=== PATIENT | female | born 1990 | race Caucasian/White ===

== ENCOUNTER 2016-11-06 10:13 | Emergency (ER) | payer OTHER ==
[~2016-11-06] VITALS: Ht 157.4 cm; Wt 59.0 kg
[~2016-11-06 10:13] MED LIST: ANAPROX DS550 MG PO; BACTRIM DS 8001 TA1 PO; CLARITIN-D 10 M1 T21 PO; COLACE100 MG PO; FLAGYL500 MG PO; HYDROCODONE BIT1 T11 PO; IRON325 M1 PO; LIDEX 0.05% CRE15 GM T; MACROBID100 M1 PO; MOTRIN800 MG PO; Motrin,Rufen800 MG PO; PERCOCET 325 MG1 TA2 PO; PERCOCET 325 MG1 TA5 PO; PRENATAL1 TA1 PO; SYNTHROID,LEVO88 MCG PO; Synthroid,Levo50 MCG PO; TOBREX OPHTH S2.5 ML OPH; Tessalon Perle100 MG PO; ULTRAM50 MG PO; VIBRAMYCIN100 MG PO; VITAMIN D5000 I3 PO; ZOFRAN ODT4 MG SL
[2016-11-06] MEDS ORDERED: ANTIBIOTIC (10:18)
[2016-12-29] MEDS ORDERED: AVPAK AZITHROM250 M1 PO (11:18)
== END 2016-11-06 11:36 | disposition home or self-care (01) ==
LOC: ED 10:13
DX: S62.663A Nondisplaced fracture of distal phalanx of left middle finger, initial encounter for closed fracture (principal); M20.012 Mallet finger of left finger(s); E03.9 Hypothyroidism, unspecified; F17.200 Nicotine dependence, unspecified, uncomplicated; Z88.2 Allergy status to sulfonamides; Z79.899 Other long term (current) drug therapy; X58.XXXA Exposure to other specified factors, initial encounter; Y93.9 Activity, unspecified; Y92.9 Unspecified place or not applicable; Y99.9 Unspecified external cause status

== ENCOUNTER 2017-02-17 10:37 | Emergency (ER) | payer OTHER ==
[~2017-02-17] VITALS: Ht 157.4 cm; Wt 59.0 kg
[~2017-02-17 10:37] MED LIST changes: +ANTIBIOTIC; +AVPAK AZITHROM250 M1 PO
[2017-02-17] MEDS ORDERED: CEPACOL SORE T1 EAC1 MM (11:57)
[2017-02-17] MEDS ORDERED: NASONEX0.05 MG/AC NAS (11:57)
== END 2017-02-17 12:22 | disposition home or self-care (01) ==
LOC: ED 10:37
DX: J02.9 Acute pharyngitis, unspecified (principal); J30.2 Other seasonal allergic rhinitis; E03.9 Hypothyroidism, unspecified; Z88.2 Allergy status to sulfonamides; Z79.899 Other long term (current) drug therapy

== ENCOUNTER 2017-04-03 09:20 | Emergency (ER) | payer OTHER ==
[~2017-04-03] VITALS: Ht 157.4 cm; Wt 45.4 kg
[~2017-04-03 09:20] MED LIST changes: +CEPACOL SORE T1 EAC1 MM; +NASONEX0.05 MG/AC NAS
[2017-04-03 09:59] LABS: BILIRUBIN 1+ (NEGATIVE); BLOOD 1+ (NEGATIVE); CLARITY SL CLOUDY (CLEAR); COLOR YELLOW (YELLOW); GLUCOSE NEGATIVE (NEGATIVE); KETONE 2+ (NEGATIVE); LEUKO ESTERASE TRACE (NEGATIVE); NITRITE NEGATIVE (NEGATIVE); PH 5.5 (5.0-9.0); PROTEIN TRACE (NEGATIVE); SPECIFIC GRAVITY 1.025 (1.005-1.030); UROBILINOGEN 0.2 E.U./dl (0.2-1.0)
[2017-04-03 10:18] LABS: BACTERIA 2+; URINE REFLEX COMMENT YES (NO)
[2017-04-03] MEDS ORDERED: MACROBID100 M1 PO (10:34)
[2017-04-03] MEDS ORDERED: ZOFRAN4 MG PO (10:34)
== END 2017-04-03 11:57 | disposition home or self-care (01) ==
LOC: ED 09:20
PROVIDERS: Nurse Practitioner Family
DX: N39.0 Urinary tract infection, site not specified (principal); R31.9 Hematuria, unspecified; Z88.2 Allergy status to sulfonamides

== ENCOUNTER 2017-04-13 15:53 | Emergency (ER) | payer OTHER ==
[~2017-04-13] VITALS: Ht 157.4 cm; Wt 59.0 kg
[~2017-04-13 15:53] MED LIST changes: +ZOFRAN4 MG PO
[2017-04-13] MEDS ORDERED: NAPROSYN500 MG PO (16:23)
[2017-04-13] MEDS ORDERED: AMOXICILLIN500 M2 PO (16:23)
== END 2017-04-13 16:38 | disposition home or self-care (01) ==
LOC: ED 15:53
DX: K08.89 Other specified disorders of teeth and supporting structures (principal); Z88.2 Allergy status to sulfonamides

== ENCOUNTER 2017-07-08 18:43 | Emergency (ER) | payer OTHER ==
[~2017-07-08] VITALS: Ht 157.4 cm; Wt 54.4 kg
[~2017-07-08 18:43] MED LIST changes: +AMOXICILLIN500 M2 PO; +NAPROSYN500 MG PO
[2017-07-08] MEDS ORDERED: ANAPROX DS550 MG PO (19:02)
== END 2017-07-08 19:26 | disposition home or self-care (01) ==
LOC: ED 18:43
DX: K08.89 Other specified disorders of teeth and supporting structures (principal); F17.200 Nicotine dependence, unspecified, uncomplicated; Z88.8 Allergy status to other drugs, medicaments and biological substances

== ENCOUNTER 2019-07-19 19:38 | Emergency (ER) | payer OTHER ==
[~2019-07-19] VITALS: Ht 157.4 cm
[2019-07-19] MEDS ORDERED: Bactroban Oint22 GM T (20:06)
== END 2019-07-19 20:25 | disposition home or self-care (01) ==
LOC: ED 19:38
DX: L70.0 Acne vulgaris (principal); E03.9 Hypothyroidism, unspecified; Z88.2 Allergy status to sulfonamides; Z79.899 Other long term (current) drug therapy

== ENCOUNTER 2019-07-29 08:30 | Emergency (ER) | payer OTHER ==
[~2019-07-29] VITALS: Ht 157.4 cm; Wt 68.0 kg
[~2019-07-29 08:30] MED LIST changes: +Bactroban Oint22 GM T
[2019-07-29] MEDS ORDERED: PREDNISONE50 MG PO (08:45)
[2019-07-29] MEDS ORDERED: ZITHROMAX250 MG PO (08:45)
== END 2019-07-29 08:51 | disposition home or self-care (01) ==
LOC: ED 08:30
DX: J06.9 Acute upper respiratory infection, unspecified (principal); E03.9 Hypothyroidism, unspecified; F17.200 Nicotine dependence, unspecified, uncomplicated; Z88.2 Allergy status to sulfonamides

== ENCOUNTER 2019-09-23 20:07 | Emergency (ER) | payer OTHER ==
[~2019-09-23] VITALS: Ht 157.4 cm
[~2019-09-23 20:07] MED LIST changes: +PREDNISONE50 MG PO; +ZITHROMAX250 MG PO
[2019-09-23] MEDS ORDERED: AMOXICILLIN500 M2 PO (21:04)
== END 2019-09-23 21:12 | disposition home or self-care (01) ==
LOC: ED 20:07
DX: J02.9 Acute pharyngitis, unspecified (principal); E07.9 Disorder of thyroid, unspecified; Z88.2 Allergy status to sulfonamides; Z79.899 Other long term (current) drug therapy; Z79.2 Long term (current) use of antibiotics

== ENCOUNTER → 2020-07-17 | Outpatient (CLI) | payer OTHER ==
[2020-07-17 12:59] LABS: ALBUMIN 4.2 gm/dl (3.1-4.5); ALKALINE PHOSPHATASE 73 U/L (45-117); BUN 12 mg/dl (7-24); CHLORIDE 104 mmol/L (98-107); FREE T4 0.83 ng/dl (0.76-1.46); POTASSIUM 3.8 mmol/L (3.5-5.1); SGOT/AST 19 IU/L (3-35); SGPT/ALT 43 U/L (12-78); SODIUM 136 mmol/L (136-145); TOTAL PROTEIN 7.9 gm/dL (6.4-8.2)
[2020-07-17 13:18] LABS: BILIRUBIN NEGATIVE; BLOOD NEGATIVE (NEGATIVE); CLARITY CLEAR (CLEAR); COLOR YELLOW (YELLOW); GLUCOSE NEGATIVE; KETONE NEGATIVE; LEUKO ESTERASE NEGATIVE (NEGATIVE); NITRITE NEGATIVE (NEGATIVE); PH 6.5 (4.5-8.0); UROBILINOGEN 0.2 E.U./dl (0.0-1.0); WBC 0-2 wbc/hpf (0-5)
[2020-07-17 13:19] LABS: BACTERIA TRACE
== END | disposition home or self-care (01) ==
LOC: LAB 11:49
PROVIDERS: ATTEND Family Medicine
DX: E03.9 Hypothyroidism, unspecified (principal); R35.0 Frequency of micturition

== ENCOUNTER → 2020-10-22 | Outpatient (CLI) | payer OTHER | END | disposition home or self-care (01) | LOC: COVID19 15:37 | PROVIDERS: ATTEND Family Medicine | DX: Z20.828 Contact with and (suspected) exposure to other viral communicable diseases (principal) ==

== ENCOUNTER → 2020-11-13 | Outpatient (CLI) | payer OTHER ==
[2020-11-13 13:33] LABS: BASO # 0.1 10*3/uL (0.0-0.1); BASO % 0.7 % (0.0-1.0); EOS # 0.2 10*3/uL (0.0-0.4); EOS % 2.8 % (1.0-4.0); HEMATOCRIT 44.4 % (37.0-47.0); LYMPH # 1.9 10*3/uL (1.3-4.4); LYMPH % 26.8 % (27.0-41.0); MEAN CELL VOLUME 94.9 fl (81.0-99.0); MEAN CORPUSCULAR HGB 30.8 pg (27.0-31.0); MEAN CORPUSCULAR HGB CONC 32.4 g/dl (33.0-37.0); MEAN PLATELET VOLUME 10.4 fl (9.6-12.3); MONO # 0.7 10*3/uL (0.1-1.0); NEUT # 4.2 10*3/uL (2.3-7.9); NEUT % 59.4 % (47.0-73.0); PLATELET COUNT AUTOMATED 254 10*3/uL (130-400); RED BLOOD COUNT 4.68 10*6/uL (4.10-5.10); RED CELL DISTRI WIDTH 12.5 % (0-14.5); WHITE BLOOD COUNT 7.1 10*3/uL (4.8-10.8)
[2020-11-13 14:01] LABS: FREE T4 0.81 ng/dl (0.76-1.46)
[2020-11-13 14:13] LABS: THYROID STIM HORMONE (HS) 2.53 uIU/ml (0.358-4.75)
== END | disposition home or self-care (01) ==
LOC: LAB 12:51
PROVIDERS: ATTEND Family Medicine
DX: E03.9 Hypothyroidism, unspecified (principal); D64.9 Anemia, unspecified

== ENCOUNTER 2021-02-07 08:44 | Emergency (ER) | payer OTHER ==
[~2021-02-07] VITALS: Ht 157.4 cm; Wt 77.1 kg
== END 2021-02-07 10:37 | disposition home or self-care (01) ==
LOC: ED 08:44
DX: U07.1 COVID-19 (principal); Z98.51 Tubal ligation status; Z79.899 Other long term (current) drug therapy; Z88.2 Allergy status to sulfonamides

== ENCOUNTER → 2021-05-31 | Outpatient (CLI) | payer OTHER ==
[2021-05-31 12:06] LABS: BASO % 0.6 % (0.0-1.0); EOS # 0.1 10*3/uL (0.0-0.4); EOS % 1.6 % (1.0-4.0); HEMATOCRIT 42.1 % (37.0-47.0); LYMPH # 1.9 10*3/uL (1.3-4.4); LYMPH % 27.9 % (27.0-41.0); MEAN CELL VOLUME 94.6 fl (81.0-99.0); MEAN CORPUSCULAR HGB 31.2 pg (27.0-31.0); MEAN PLATELET VOLUME 10.2 fl (9.6-12.3); MONO # 0.6 10*3/uL (0.1-1.0); MONO % 8.9 % (3.0-9.0); NEUT # 4.1 10*3/uL (2.3-7.9); NEUT % 60.6 % (47.0-73.0); PLATELET COUNT AUTOMATED 240 10*3/uL (130-400); RED BLOOD COUNT 4.45 10*6/uL (4.10-5.10); WHITE BLOOD COUNT 6.8 10*3/uL (4.8-10.8)
[2021-05-31 12:52] LABS: ALBUMIN 4.1 gm/dl (3.1-4.5); ALKALINE PHOSPHATASE 66 U/L (45-117); BUN 18 mg/dl (7-24); CHLORIDE 107 mmol/L (98-107); CREATININE 0.73 mg/dL (0.55-1.02); POTASSIUM 3.8 mmol/L (3.5-5.1); SGOT/AST 25 IU/L (3-35); SGPT/ALT 46 U/L (12-78); SODIUM 137 mmol/L (136-145); TOTAL PROTEIN 7.9 gm/dL (6.4-8.2)
[2021-06-05 09:07] LABS: ALTERNARIA ALTERNATA, IGE <0.10 kU/L (Class 0); ASPERGILLUS FUMIGATU, IGE <0.10 kU/L (Class 0); CLADOSPORIUM HERBARU, IGE <0.10 kU/L (Class 0); PENICILLIUM CHRYSOGENUM, IGE <0.10 kU/L (Class 0); SETOMELANOMMA ROSTRAT <0.10 kU/L (Class 0); STEMPHYLIUM HERBARUM <0.10 kU/L (Class 0)
== END | disposition home or self-care (01) ==
LOC: LAB 11:26
PROVIDERS: ATTEND Family Medicine
DX: K21.9 Gastro-esophageal reflux disease without esophagitis (principal); J30.2 Other seasonal allergic rhinitis

== ENCOUNTER → 2021-07-23 | Outpatient (CLI) | payer OTHER ==
[2021-07-23 09:41] LABS: BASO # 0.1 10*3/uL (0.0-0.1); BASO % 0.7 % (0.0-1.0); EOS # 0.2 10*3/uL (0.0-0.4); EOS % 2.1 % (1.0-4.0); LYMPH # 2.5 10*3/uL (1.3-4.4); LYMPH % 35.2 % (27.0-41.0); MEAN CELL VOLUME 93.2 fl (81.0-99.0); MEAN CORPUSCULAR HGB 30.9 pg (27.0-31.0); MEAN CORPUSCULAR HGB CONC 33.2 g/dl (33.0-37.0); MEAN PLATELET VOLUME 9.9 fl (9.6-12.3); MONO # 0.7 10*3/uL (0.1-1.0); MONO % 9.9 % (3.0-9.0); NEUT # 3.7 10*3/uL (2.3-7.9); PLATELET COUNT AUTOMATED 265 10*3/uL (130-400); RED CELL DISTRI WIDTH 12.3 % (0-14.5)
[2021-07-23 10:28] LABS: BUN 17 mg/dl (7-24); CHLORIDE 107 mmol/L (98-107); CHOLESTEROL 165 mg/dL (<200); POTASSIUM 4.1 mmol/L (3.5-5.1); SGOT/AST 18 IU/L (3-35); SGPT/ALT 45 U/L (12-78); SODIUM 137 mmol/L (136-145); TRIGLYCERIDES 55 mg/dl (<150)
[2021-07-23 10:37] LABS: ALKALINE PHOSPHATASE 70 U/L (45-117); LDL CHOLESTEROL 86 mg/dL (9-159); THYROID STIM HORMONE (HS) 0.472 uIU/ml (0.358-4.75)
== END | disposition home or self-care (01) ==
LOC: LAB 09:17
PROVIDERS: ATTEND Nurse Practitioner Family
DX: Z13.228 Encounter for screening for other metabolic disorders (principal); Z13.220 Encounter for screening for lipoid disorders; E03.9 Hypothyroidism, unspecified

== ENCOUNTER → 2021-08-14 | Outpatient (CLI) | payer OTHER | END | disposition home or self-care (01) | LOC: LAB 08:19 | PROVIDERS: ATTEND Nurse Practitioner Family | DX: R19.7 Diarrhea, unspecified (principal) ==

== ENCOUNTER → 2021-09-18 | Outpatient (CLI) | payer OTHER | END | disposition home or self-care (01) | LOC: MRI 08:55 | PROVIDERS: ATTEND Nurse Practitioner Family | DX: G93.89 Other specified disorders of brain (principal); G44.52 New daily persistent headache (NDPH); R45.86 Emotional lability; L29.9 Pruritus, unspecified; F52.9 Unspecified sexual dysfunction not due to a substance or known physiological condition; R53.83 Other fatigue; R53.1 Weakness; R26.89 Other abnormalities of gait and mobility; R68.89 Other general symptoms and signs; R42 Dizziness and giddiness; R20.2 Paresthesia of skin ==

== ENCOUNTER → 2021-10-01 | Outpatient (CLI) | payer OTHER | LOC: COVID19 16:26 | PROVIDERS: ATTEND Internal Medicine | DX: Z11.52 Encounter for screening for COVID-19 (principal); Z20.822 Contact with and (suspected) exposure to COVID-19 ==

== ENCOUNTER → 2021-10-22 | Outpatient (CLI) | payer OTHER ==
[2021-10-22 11:49] LABS: BASO # 0.1 10*3/uL (0.0-0.1); BASO % 0.8 % (0.0-1.0); EOS # 0.2 10*3/uL (0.0-0.4); HEMATOCRIT 40.5 % (37.0-47.0); LYMPH % 26.8 % (27.0-41.0); MEAN CELL VOLUME 91.8 fl (81.0-99.0); MEAN CORPUSCULAR HGB 30.2 pg (27.0-31.0); MEAN CORPUSCULAR HGB CONC 32.8 g/dl (33.0-37.0); MEAN PLATELET VOLUME 10.2 fl (9.6-12.3); MONO # 0.5 10*3/uL (0.1-1.0); MONO % 6.2 % (3.0-9.0); NEUT # 4.6 10*3/uL (2.3-7.9); NEUT % 62.7 % (47.0-73.0); PLATELET COUNT AUTOMATED 302 10*3/uL (130-400); RED BLOOD COUNT 4.41 10*6/uL (4.10-5.10); WHITE BLOOD COUNT 7.3 10*3/uL (4.8-10.8)
[2021-10-22 12:18] LABS: ALBUMIN 3.7 gm/dl (3.1-4.5); BUN 16 mg/dl (7-24); CHLORIDE 110 mmol/L (98-107); CHOLESTEROL 161 mg/dL (<200); CREATININE 0.88 mg/dL (0.55-1.02); SGOT/AST 19 IU/L (3-35); SGPT/ALT 36 U/L (12-78); SODIUM 140 mmol/L (136-145); TOTAL PROTEIN 7.9 gm/dL (6.4-8.2); TRIGLYCERIDES 69 mg/dl (<150)
[2021-10-22 12:28] LABS: ALKALINE PHOSPHATASE 69 U/L (45-117); LDL CHOLESTEROL 94 mg/dL (9-159)
[2021-10-22 13:59] LABS: VITAMIN D, 25-HYDROXY 35.5 ng/mL (30-100)
== END | disposition home or self-care (01) ==
LOC: LAB 11:27
PROVIDERS: ATTEND Nurse Practitioner Family
DX: Z13.220 Encounter for screening for lipoid disorders (principal); E55.9 Vitamin D deficiency, unspecified; E03.9 Hypothyroidism, unspecified; R20.2 Paresthesia of skin; Z13.228 Encounter for screening for other metabolic disorders

== ENCOUNTER → 2021-10-28 | Outpatient (CLI) | payer OTHER | END | disposition home or self-care (01) | LOC: COVID19 17:08 | PROVIDERS: ATTEND Student in an Organized Health Care Education/Training Program | DX: Z11.52 Encounter for screening for COVID-19 (principal); Z20.822 Contact with and (suspected) exposure to COVID-19 ==

== ENCOUNTER → 2021-11-04 | Outpatient (CLI) | payer OTHER | END | disposition home or self-care (01) | LOC: RAD 11:09 | PROVIDERS: ATTEND Nurse Practitioner Family | DX: R05.9 Cough, unspecified (principal); R50.9 Fever, unspecified; R06.02 Shortness of breath ==

== ENCOUNTER 2022-03-22 20:39 | Emergency (ER) | payer OTHER | END 2022-03-23 02:11 | disposition home or self-care (01) | LOC: ED 20:39 | DX: S96.912A Strain of unspecified muscle and tendon at ankle and foot level, left foot, initial encounter (principal); S90.02XA Contusion of left ankle, initial encounter; S70.311A Abrasion, right thigh, initial encounter; Z88.2 Allergy status to sulfonamides; Z98.51 Tubal ligation status; Z90.49 Acquired absence of other specified parts of digestive tract; X50.1XXA Overexertion from prolonged static or awkward postures, initial encounter; Y93.89 Activity, other specified; Y92.89 Other specified places as the place of occurrence of the external cause; Y99.8 Other external cause status ==

== ENCOUNTER 2022-07-04 12:25 | Emergency (ER) | payer OTHER ==
[~2022-07-04] VITALS: Ht 157.4 cm; Wt 81.6 kg
== END 2022-07-04 13:01 | disposition home or self-care (01) ==
LOC: ED 12:25
DX: B34.9 Viral infection, unspecified (principal); Z20.822 Contact with and (suspected) exposure to COVID-19; Z88.2 Allergy status to sulfonamides; Z79.2 Long term (current) use of antibiotics; Z79.899 Other long term (current) drug therapy; Z98.51 Tubal ligation status

== ENCOUNTER 2022-07-25 08:36 | Emergency (ER) | payer OTHER ==
[2022-07-25] MEDS ORDERED: LEVOTHYROXINE125 MCG PO (08:47)
[2022-07-25] MEDS ORDERED: FLUOXETINE HYDR20 M1 PO (08:47)
[2022-07-25] MEDS ORDERED: BUPROPION HYDR150 M3 PO (08:48)
== END 2022-07-25 10:31 | disposition home or self-care (01) ==
LOC: ED 08:36
DX: B34.9 Viral infection, unspecified (principal); Z20.822 Contact with and (suspected) exposure to COVID-19; Z88.2 Allergy status to sulfonamides; Z79.899 Other long term (current) drug therapy; Z98.51 Tubal ligation status

== ENCOUNTER → 2023-01-03 | Outpatient (CLI) | payer OTHER ==
[~2023-01-03] MED LIST changes: +BUPROPION HYDR150 M3 PO; +FLUOXETINE HYDR20 M1 PO; +LEVOTHYROXINE125 MCG PO
== END | disposition home or self-care (01) ==
LOC: LAB 11:01
PROVIDERS: ATTEND Nurse Practitioner Family
DX: E03.9 Hypothyroidism, unspecified (principal)

== ENCOUNTER → 2023-01-30 | Outpatient (CLI) | payer OTHER ==
[2023-01-30 10:52] LABS: BASO # 0.1 10*3/uL (0.0-0.1); BASO % 0.8 % (0.0-1.0); EOS # 0.2 10*3/uL (0.0-0.4); EOS % 3.4 % (1.0-4.0); HEMATOCRIT 43.5 % (37.0-47.0); LYMPH # 2.3 10*3/uL (1.3-4.4); LYMPH % 37.3 % (27.0-41.0); MEAN CELL VOLUME 98.6 fl (81.0-99.0); MEAN CORPUSCULAR HGB CONC 32.4 g/dl (33.0-37.0); MONO # 0.6 10*3/uL (0.1-1.0); MONO % 10.3 % (3.0-9.0); NEUT % 47.9 % (47.0-73.0); PLATELET COUNT AUTOMATED 263 10*3/uL (130-400); RED BLOOD COUNT 4.41 10*6/uL (4.10-5.10); RED CELL DISTRI WIDTH 12.1 % (0-14.5); WHITE BLOOD COUNT 6.2 10*3/uL (4.8-10.8)
[2023-01-30 11:55] LABS: ALKALINE PHOSPHATASE 67 U/L (46-116); BUN 18 mg/dl (9-23); CHLORIDE 106 mmol/L (98-107); POTASSIUM 3.9 mmol/L (3.4-5.1); SGPT/ALT 38 U/L (10-49); THYROID STIM HORMONE (HS) 2.194 uIU/ml (0.550-4.780); TOTAL PROTEIN 7.3 gm/dL (6.0-8.0)
== END | disposition home or self-care (01) ==
LOC: LAB 10:10
PROVIDERS: ATTEND Nurse Practitioner Family
DX: Z13.220 Encounter for screening for lipoid disorders (principal); Z13.228 Encounter for screening for other metabolic disorders

== ENCOUNTER → 2023-02-25 | Outpatient (CLI) | payer OTHER | END | disposition home or self-care (01) | LOC: RAD 14:25 | PROVIDERS: ATTEND Chiropractor | DX: M54.2 Cervicalgia (principal); M54.50 Low back pain, unspecified; M54.6 Pain in thoracic spine ==

== ENCOUNTER → 2023-12-03 | Outpatient (CLI) | payer OTHER | END | disposition home or self-care (01) | LOC: LAB 08:58 | PROVIDERS: ATTEND Nurse Practitioner Family | DX: E03.9 Hypothyroidism, unspecified (principal) ==

== ENCOUNTER 2025-04-01 10:41 | Emergency (ER) | payer OTHER ==
[~2025-04-01] VITALS: Ht 157.4 cm; Wt 92.1 kg
[2025-04-01] MEDS ORDERED: ZITHROMAX250 MG PO (11:06)
== END 2025-04-01 11:17 | disposition home or self-care (01) ==
LOC: ED 10:41
DX: J02.9 Acute pharyngitis, unspecified (principal); R51.9 Headache, unspecified; R50.9 Fever, unspecified; E03.9 Hypothyroidism, unspecified; F32.A Depression, unspecified; Z88.2 Allergy status to sulfonamides; Z79.899 Other long term (current) drug therapy